=== PATIENT | female | born 1995 | race Hispanic/Latino ===

== ENCOUNTER 2019-01-17 18:32 | Emergency (ER) | payer BC ==
--- NOTE | 2019-01-17 19:22 | Event Note ---
ED Screening Note Date of service: 01/17/19 Time: 19:18 ED Screening Note: This is a 23 y.o. F. that presents to the ER with low blood pressure. Patient is at [facility] for heroin and meth and taking suboxone. Denies visual changes, dizziness, palpitations, dyspnea, or fatigue. This initial assessment/diagnostic orders/clinical plan/treatment(s) is/are subject to change based on patients health status, clinical progression and re- assessment by fellow clinical providers in the ED. Further treatment and workup at subsequent clinical providers discretion. Patient/guardian urged not to elope from the ED as their condition may be serious if not clinically assessed and managed. Initial orders include: Labs
[2019-01-17 19:25] VITALS: BP 114/53
[2019-01-17 20:18] LABS: Basophils # (Auto) 0.1 K/mm3 (0.0-0.1); Basophils % (Auto) 1.2 % (0.0-1.8); Eosinophils # (Auto) 0.2 K/mm3 (0.0-0.4); Eosinophils % (Auto) 3.9 % (0.0-4.3); Hematocrit 40.9 % (30.3-42.9); Hemoglobin 13.5 gm/dl (10.1-14.3); Lymphocytes # (Auto) 2.4 K/mm3 (1.2-5.4); Lymphocytes % (Auto) 40.1 % (13.4-35.0); Mean Corpuscular HGB Conc 33 % (30-34); Mean Corpuscular Volume 87 fl (79-97); Monocytes # (Auto) 0.4 K/mm3 (0.0-0.8); Monocytes % (Auto) 6.4 % (0.0-7.3); Platelet Count 293 K/mm3 (140-440); Red Cell Distribution Width 14.2 % (13.2-15.2)
[2019-01-17 20:54] LABS: Bilirubin,Urine NEG (Negative); Blood,Urine NEG (Negative); Color,Urine Straw (Yellow); Protein,Urine <15 mg/dL mg/dL (Negative); Urobilinogen,Urine < 2.0 mg/dL (<2.0)
[2019-01-17 20:56] LABS: WBC,Urine < 1.0 /HPF (0.0-6.0)
[2019-01-17 21:02] LABS: BUN/Creatinine Ratio 17; Blood Urea Nitrogen 10 mg/dL (7-17); Calcium 8.9 mg/dL (8.4-10.2); Hemolysis Index 12
[2019-01-17 21:04] LABS: Amphetamine Screen,Urine PRESUMPTIVE NEGATIVE; Benzodiazepines Screen,Urine PRESUMPTIVE NEGATIVE; Cocaine Screen,Urine PRESUMPTIVE NEGATIVE; Methadone Screen,Urine PRESUMPTIVE NEGATIVE; Opiate Screen,Urine PRESUMPTIVE NEGATIVE
--- NOTE | 2019-01-17 21:19 | Emergency Department Report ---
ED Medical Clearance HPI - General Chief complaint: Recheck/Abnormal Lab/Rx Stated complaint: LBP Time Seen by Provider: 01/17/19 19:18 Source: patient Mode of arrival: Ambulatory - History of Present Illness Initial comments: Patient is a 23-year-old female who presents the emergency room for medical clearance. Patient states she is currently inpatient at [facility]. Patient states that today during her routine vital check her blood pressure was 80/60. Patient states they repeated shortly after and her blood pressure was normal. pt states that [facility] still wanted her to be evaluated in the emergency room. Patient denies any symptoms at all and denies any symptoms when her blood pressure was being checked. She denies any chest pain, palpitations, lighthe adedness, dizziness, headache, nausea, vomiting, fever, chills, shortness of breath. 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 She states she last used 4 days ago. Patient states that she is currently on Suboxone at [facility]. She denies any past medical history or allergies to medications. States she is currently on her menstrual cycle. Allergies/Adverse reactions: Allergies Allergy/AdvReac Type Severity Reaction Status Date / Time No Known Allergies Allergy Unverified 01/17/19 18:34 ED Review of Systems ROS: Stated complaint: LBP Other details as noted in HPI Comment: All other systems reviewed and negative ED Past Medical Hx - Past Medical History Previous Medical History?: No - Surgical History Past Surgical History?: No - Social History Smoking Status: Never Smoker Substance Use Type: Heroin, Methamphetamines ED Physical Exam - General Limitations: No Limitations General appearance: alert, in no apparent distress - Head Head exam: Present: atraumatic, normocephalic - Eye Eye exam: Present: normal appearance - ENT ENT exam: Present: mucous membranes moist - Respiratory Respiratory exam: Present: normal lung sounds bilaterally. Absent: respiratory distress, wheezes, rales, rhonchi, stridor, chest wall tenderness, accessory muscle use, decreased breath sounds, prolonged expiratory - Cardiovascular Cardiovascular Exam: Present: regular rate, normal rhythm, normal heart sounds. Absent: systolic murmur, diastolic murmur, rubs, gallop - Neurological Exam Neurological exam: Present: alert, oriented X3, CN II-XII intact, normal gait. Absent: motor sensory deficit - Psychiatric Psychiatric exam: Present: normal affect, normal mood - Skin Skin exam: Present: warm, dry, intact ED Course Vital Signs 01/17/19 01/17/19 19:19 19:24 Temperature 98.6 F Pulse Rate 90 77 Respiratory 18 16 Rate Blood Pressure 119/60 Blood Pressure 114/53 [Left] O2 Sat by Pulse 98 100 Oximetry - Consultations Consultation #1: 01/17/19 21:40 spoke to Roge at [facility] ED Medical Decision Making - Lab Data Result diagrams: 01/17/19 19:59 01/17/19 19:59 Lab Results 01/17/19 01/17/19 01/17/19 Range/Units 19:59 19:59 19:59 WBC (4.5-11.0) K/mm3 RBC (3.65-5.03) M/mm3 Hgb (10.1-14.3) gm/dl Hct (30.3-42.9) % MCV (79-97) fl MCH (28-32) pg MCHC (30-34) % RDW (13.2-15.2) % Plt Count (140-440) K/mm3 Lymph % (Auto) (13.4-35.0) % [place] % (Auto) (0.0-7.3) % Eos % (Auto) (0.0-4.3) % Baso % (Auto) (0.0-1.8) % Lymph # (1.2-5.4) K/mm3 [place] # (0.0-0.8) K/mm3 Eos # (0.0-0.4) K/mm3 Baso # (0.0-0.1) K/mm3 Seg Neutrophils % (40.0-70.0) % Seg Neutrophils # (1.8-7.7) K/mm3 Sodium 139 (137-145) mmol/L Potassium 4.1 (3.6-5.0) mmol/L Chloride 104.5 (98-107) mmol/L Carbon Dioxide 24 (22-30) mmol/L Anion Gap 15 mmol/L BUN 10 (7-17) mg/dL Creatinine 0.6 L (0.7-1.2) mg/dL Estimated GFR > 60 ml/min BUN/Creatinine Ratio 17 % Glucose 70 (65-100) mg/dL Calcium 8.9 (8.4-10.2) mg/dL HCG, Qual (Negative) Urine Color (Yellow) Urine Turbidity (Clear) Urine pH (5.0-7.0) Ur Specific [place] (1.003-1.030) Urine Protein (Negative) mg/dL Urine Glucose (UA) (Negative) mg/dL Urine Ketones (Negative) mg/dL Urine Blood (Negative) Urine Nitrite (Negative) Urine Bilirubin (Negative) Urine Urobilinogen (<2.0) mg/dL Ur Leukocyte Esterase (Negative) Urine WBC (Auto) (0.0-6.0) /HPF Urine RBC (Auto) (0.0-6.0) /HPF U Epithel Cells (Auto) (0-13.0) /HPF Salicylates < 0.3 L (2.8-20.0) mg/dL Urine Opiates Screen Urine Methadone Screen Acetaminophen < 5.0 L (10.0-30.0) ug/mL Ur Barbiturates Screen Ur Phencyclidine Scrn Ur Amphetamines Screen U Benzodiazepines Scrn Urine Cocaine Screen U Marijuana (THC) Screen Drugs of Abuse Note Plasma/Serum Alcohol (0-0.07) % 01/17/19 01/17/19 01/17/19 Range/Units 19:59 19:59 19:59 WBC 6.0 (4.5-11.0) K/mm3 RBC 4.70 (3.65-5.03) M/mm3 Hgb 13.5 (10.1-14.3) gm/dl Hct 40.9 (30.3-42.9) % MCV 87 (79-97) fl MCH 29 (28-32) pg MCHC 33 (30-34) % RDW 14.2 (13.2-15.2) % Plt Count 293 (140-440) K/mm3 Lymph % (Auto) 40.1 H (13.4-35.0) % [place] % (Auto) 6.4 (0.0-7.3) % Eos % (Auto) 3.9 (0.0-4.3) % Baso % (Auto) 1.2 (0.0-1.8) % Lymph # 2.4 (1.2-5.4) K/mm3 [place] # 0.4 (0.0-0.8) K/mm3 Eos # 0.2 (0.0-0.4) K/mm3 Baso # 0.1 (0.0-0.1) K/mm3 Seg Neutrophils % 48.4 (40.0-70.0) % Seg Neutrophils # 2.9 (1.8-7.7) K/mm3 Sodium (137-145) mmol/L Potassium (3.6-5.0) mmol/L Chloride (98-107) mmol/L Carbon Dioxide (22-30) mmol/L Anion Gap mmol/L BUN (7-17) mg/dL Creatinine (0.7-1.2) mg/dL Estimated GFR ml/min BUN/Creatinine Ratio % Glucose (65-100) mg/dL Calcium (8.4-10.2) mg/dL HCG, Qual Negative (Negative) Urine Color (Yellow) Urine Turbidity (Clear) Urine pH (5.0-7.0) Ur Specific [place] (1.003-1.030) Urine Protein (Negative) mg/dL Urine Glucose (UA) (Negative) mg/dL Urine Ketones (Negative) mg/dL Urine Blood (Negative) Urine Nitrite (Negative) Urine Bilirubin (Negative) Urine Urobilinogen (<2.0) mg/dL Ur Leukocyte Esterase (Negative) Urine WBC (Auto) (0.0-6.0) /HPF Urine RBC (Auto) (0.0-6.0) /HPF U Epithel Cells (Auto) (0-13.0) /HPF Salicylates (2.8-20.0) mg/dL Urine Opiates Screen Urine Methadone Screen Acetaminophen (10.0-30.0) ug/mL Ur Barbiturates Screen Ur Phencyclidine Scrn Ur Amphetamines Screen U Benzodiazepines Scrn Urine Cocaine Screen U Marijuana (THC) Screen Drugs of Abuse Note Plasma/Serum Alcohol < 0.01 (0-0.07) % 01/17/19 01/17/19 Range/Units 20:06 20:13 WBC (4.5-11.0) K/mm3 RBC (3.65-5.03) M/mm3 Hgb (10.1-14.3) gm/dl Hct (30.3-42.9) % MCV (79-97) fl MCH (28-32) pg MCHC (30-34) % RDW (13.2-15.2) % Plt Count (140-440) K/mm3 Lymph % (Auto) (13.4-35.0) % [place] % (Auto) (0.0-7.3) % Eos % (Auto) (0.0-4.3) % Baso % (Auto) (0.0-1.8) % Lymph # (1.2-5.4) K/mm3 [place] # (0.0-0.8) K/mm3 Eos # (0.0-0.4) K/mm3 Baso # (0.0-0.1) K/mm3 Seg Neutrophils % (40.0-70.0) % Seg Neutrophils # (1.8-7.7) K/mm3 Sodium (137-145) mmol/L Potassium (3.6-5.0) mmol/L Chloride (98-107) mmol/L Carbon Dioxide (22-30) mmol/L Anion Gap mmol/L BUN (7-17) mg/dL Creatinine (0.7-1.2) mg/dL Estimated GFR ml/min BUN/Creatinine Ratio % Glucose (65-100) mg/dL Calcium (8.4-10.2) mg/dL HCG, Qual (Negative) Urine Color Straw (Yellow) Urine Turbidity Clear (Clear) Urine pH 5.0 (5.0-7.0) Ur Specific [place] 1.012 (1.003-1.030) Urine Protein <15 mg/dl (Negative) mg/dL Urine Glucose (UA) Neg (Negative) mg/dL Urine Ketones Neg (Negative) mg/dL Urine Blood Neg (Negative) Urine Nitrite Neg (Negative) Urine Bilirubin Neg (Negative) Urine Urobilinogen < 2.0 (<2.0) mg/dL Ur Leukocyte Esterase Neg (Negative) Urine WBC (Auto) < 1.0 (0.0-6.0) /HPF Urine RBC (Auto) 1.0 (0.0-6.0) /HPF U Epithel Cells (Auto) 2.0 (0-13.0) /HPF Salicylates (2.8-20.0) mg/dL Urine Opiates Screen Presumptive negative Urine Methadone Screen Presumptive negative Acetaminophen (10.0-30.0) ug/mL Ur Barbiturates Screen Presumptive negative Ur Phencyclidine Scrn Presumptive negative Ur Amphetamines Screen Presumptive negative U Benzodiazepines Scrn Presumptive negative Urine Cocaine Screen Presumptive negative U Marijuana (THC) Screen Presumptive positive Drugs of Abuse Note Disclamer Plasma/Serum Alcohol (0-0.07) % - Medical Decision Making Patient is a 23-year-old female who presents the emergency room for medical clearance. Patient states she is currently inpatient at [facility]. Patient states that today during her routine vital check her blood pressure was 80/60. Patient states they repeated shortly after and her blood pressure was normal. pt states that [facility] still wanted her to be evaluated in the emergency room. Patient denies any symptoms at all and denies any symptoms when her blood pressure was being checked. She denies any chest pain, palpitations, lightheadedness, dizziness, headache, nausea, vomiting, fever, chills, shortness of breath. 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 She states she last used 4 days ago. Patient states that she is currently on Suboxone at [facility]. She denies any past medical history or allergies to medications. States she is currently on her menstrual cycle. Vitals have been checked multiple times throughout the patient's ED stay and have had a normal blood pressure. Patient blood pressure is normal upon sitting and standing. Patient has remained asymptomatic her entire ED stay and never experienced symptoms at all. The patient's labs are normal. Patient's urine without evidence of UTI and no ketones or protein present. UDS is only positive for THC. pt is a young, active otherwise healthy female despite drug abuse. Patient is showing no signs of withdraw vitals are normal she is not experiencing tremors or nausea or vomiting patient is stable. pt is medically cleared to return back to [facility] facility. advised pt to please increase your fluid intake. Follow up with a primary care doctor in the next 3-5 days. Return to the emergency room immediately for any new or worsening symptoms or if begin experiencing any symptoms at all. ED Disposition Clinical Impression: Medical clearance for psychiatric admission Disposition: [id number]/TX-[id number] ANOTHER TYPE [facility]THCARE Is pt being admited?: No Does the pt Need Aspirin: No Condition: Stable Additional Instructions: Please increase your fluid intake. Follow up with a primary care doctor in the next 3-5 days. Return to the emergency room immediately for any new or worsening symptoms or if begin experiencing any symptoms at all. pt is medically clear for return to [facility]. Referrals: PRIMARY CARE, [Primary Care Provider] - 3-5 Days Time of Disposition: 21:37 Print Language: ESTONIAN
[2019-01-17 21:22] LABS: Cannabinoid Screen,Urine PRESUMPTIVE POSITIVE
== END 2019-01-17 21:55 | disposition other institution (70) ==
LOC: ED 18:32
DX: F11.23 Opioid dependence with withdrawal (principal); F15.10 Other stimulant abuse, uncomplicated; F13.10 Sedative, hypnotic or anxiolytic abuse, uncomplicated
CPT/HCPCS: 36415; 80048; 80307; 80320; 81001; 84703; 85025; 99283; G0480